=== PATIENT | female | born 1990 | race Two or more races ===

== ENCOUNTER 2018-12-30 15:58 | Emergency (ER) | payer SELFPAY ==
[~2018-12-30] VITALS: Ht 157.5 cm; Wt 97.5 kg
[~2018-12-30 15:58] MED LIST: NITR100C62 PO; ONDA4TAB10 PO; RANI-376 PO
[2018-12-30 17:55] VITALS: BP 128/77
[2018-12-30] MEDS ORDERED: TERB30CR TP (18:45)
--- NOTE | 2018-12-30 18:45 | PHYS DOC ---
Past Medical History Past Medical History: No Pertinent History (MICHELE POLANCO APRN) Past Surgical History: No Surgical History (MICHELE POLANCO APRN) Alcohol Use: None Drug Use: None (MICHELE POLANCO APRN) Adult General Chief Complaint Chief Complaint: SKIN RASH/ABSCESS HPI HPI Patient is a 28 year old female who presents to the emergency department with complaints of the dry, itchy, rash on both of her hands for the last week. Patient reports that the rash is painful, she currently he rates the pain and 8/10 and describes it as burning. (MICHELE POLANCO APRN) Review of Systems Review of Systems Constitutional: Denies fever or chills [] HENT: Denies nasal congestion or sore throat [] Respiratory: Denies cough or shortness of breath [] Cardiovascular: No additional information not addressed in HPI [] GI: Denies abdominal pain, nausea, vomiting, or diarrhea Musculoskeletal: Denies joint pain [] Integument: See HPI Neurologic: Denies headache, focal weakness or sensory changes [] Complete systems were reviewed and found to be within normal limits, except as documented in this note. (MICHELE POLANCO APRN) Allergies Allergies Allergies Coded Allergies Type Severity Reaction Last Updated Verified No Known Drug Allergies 04/19/14 No (REFUGIO BOYD MD) Physical Exam Physical Exam Constitutional: Well developed, well nourished, no acute distress, non-toxic appearance. [] HENT: Normocephalic, atraumatic, bilateral external ears normal, oropharynx moist, no oral exudates, nose normal. [] Eyes: PERRLA, no discharge. [] Neck: Normal range of motion, no stridor. [] Cardiovascular:Heart rate regular rhythm Lungs & Thorax: respirations even and unlabored, no retractions, no distress Skin: Warm, dry, no erythema; dry, scaly, cracked skin present on bilateral hands consistent with tinea mannum Extremities: No cyanosis, ROM intact, no edema, no deformities. Neurologic: Alert and oriented X 3, normal motor function, normal sensory function, no focal deficits noted. [] Psychologic: Affect normal, judgement normal, mood normal. [] (MICHELE POLANCO APRN) EKG EKG [] (MICHELE POLANCO APRN) Radiology/Procedures Radiology/Procedures [] (MICHELE POLANCO APRN) Course & Med Decision Making Course & Med Decision Making Pertinent Labs and Imaging studies reviewed. (See chart for details) [] (MICHELE POLANCO APRN) Course & Med Decision Making Staff Physician Addendum: I was working in the ER during the course of this patient's visit. I was available for consultation as needed, but I was not directly involved in the care of this patient. (REFUGIO BOYD MD) Dragon Disclaimer Dragon Disclaimer This electronic medical record was generated, in whole or in part, using a voice recognition dictation system. (MICHELE POLANCO APRN) Departure Departure Impression: Primary Impression: Tinea manuum Disposition: 01 HOME, SELF-CARE Condition: STABLE Referrals: NO PCP (PCP) Patient Instructions: Skin Infections, Terbinafine skin cream, gel, or topical solution Additional Instructions: Fill the prescription and use as directed. Avoid scratching areas. Follow up with Primary care doctor for further treatment and evaluation, return to the ER if symptoms worsen. Scripts Terbinafine HCl (Lamisil At) 30 Gm Cream..g. 30 GM TP BID for 14 Days, #1 TUBE 0 Refills Prov: MICHELE POLANCO APRN 12/30/18 MICHELE POLANCO APRN Dec 30, 2018 18:45 REFUGIO BOYD MD March 11, 2019 06:53
== END 2018-12-30 18:54 | disposition home or self-care (01) ==
LOC: ER 15:58
DX: B35.2 Tinea manuum (principal)
CPT/HCPCS: 99282

== ENCOUNTER 2019-09-16 20:17 | Emergency (ER) | payer SELFPAY ==
[~2019-09-16] VITALS: Ht 152.4 cm; Wt 81.6 kg
[~2019-09-16 20:17] MED LIST changes: +TERB30CR TP
[2019-09-16 21:17] VITALS: BP 121/87
[2019-09-16 21:53] LABS: INFLUENZA A PATIENT NEGATIVE (NEGATIVE); INFLUENZA B PATIENT NEGATIVE (NEGATIVE)
[2019-09-16] MEDS ORDERED: METH4TAB2 PO (21:57)
[2019-09-16] MEDS ORDERED: BENZ100C PO (21:57)
[2019-09-16] MEDS ORDERED: AZIT250T6 PO (21:57)
--- NOTE | 2019-09-16 21:57 | PHYS DOC ---
Past Medical History Past Medical History: No Pertinent History (MARGOT YUSUF APRN) Past Surgical History: No Surgical History (MARGOT YUSUF APRN) Alcohol Use: None Drug Use: None (MARGOT YUSUF APRN) Adult General Chief Complaint Chief Complaint: COUGH HPI HPI Patient is a 29 year old female who presents with today began having a cough and runny nose. Patient denies any pain, fever, chest pain, shortness of air, d iarrhea, nausea, vomiting, abdominal pain. (MARGOT YUSUF APRN) Review of Systems Review of Systems HENT: nasal congestion or denies sore throat [] Respiratory: cough or denies shortness of breath [] All other systems were reviewed and found to be within normal limits, except as documented in this note. (MARGOT YUSUF APRN) Current Medications Current Medications Current Medications Medications (Trade) Dose Ordered Sig/Davey Start Time Stop Time Status Last Admin Dose Admin Albuterol Sulfate (Ventolin Neb Soln) 2.5 mg 1X ONCE 09/16/19 22:00 09/16/19 22:01 DC 09/16/19 21:41 2.5 MG (REFUGIO BOYD MD) Allergies Allergies Allergies Coded Allergies Type Severity Reaction Last Updated Verified No Known Drug Allergies 04/19/14 No (REFUGIO BOYD MD) Physical Exam Physical Exam Constitutional: Well developed, well nourished, no acute distress, non-toxic appearance. [] HENT: Normocephalic, atraumatic, bilateral external ears normal, oropharynx moist, no oral exudates, nose normal. [] Eyes: PERRLA, EOMI, conjunctiva normal, no discharge. [] Neck: Normal range of motion, no tenderness, supple, no stridor. [] Cardiovascular:Heart rate regular rhythm, no murmur [] Lungs & Thorax: Bilateral breath sounds expiratory wheezing to auscultation [] Abdomen: Bowel sounds normal, soft, no tenderness, no masses, no pulsatile masses. [] Skin: Warm, dry, no erythema, no rash. [] Back: No tenderness, no CVA tenderness. [] Extremities: No tenderness, no cyanosis, no clubbing, ROM intact, no edema. [] Neurologic: Alert and oriented X 3, normal motor function, normal sensory function, no focal deficits noted. [] Psychologic: Affect normal, judgement normal, mood normal. [] (MARGOT YUSUF APRN) Current Patient Data Vital Signs Vital Signs Date Time Temp Pulse Resp B/P (MAP) Pulse Ox O2 Delivery O2 Flow Rate FiO2 09/16/19 21:41 98 Room Air 09/16/19 21:17 98.3 72 16 121/87 (98) 98.3 (REFUGIO BOYD MD) Lab Values Laboratory Tests Test 09/16/19 21:30 09/16/19 22:25 Influenza Type A Antigen Negative (NEGATIVE) Influenza Type B Antigen Negative (NEGATIVE) POC Urine HCG, Qualitative Hcg negative (Negative) (REFUGIO BOYD MD) Lab Values Laboratory Tests Test 09/16/19 21:30 Influenza Type A Antigen Negative (NEGATIVE) Influenza Type B Antigen Negative (NEGATIVE) (MARGOT YUSUF APRN) EKG EKG [] (MARGOT YUSUF APRN) Radiology/Procedures Radiology/Procedures [] (MARGOT YUSUF APRN) Course & Med Decision Making Course & Med Decision Making Alert and oriented. Skin pink warm and dry. Patient has expiratory wheezing throughout all lung lobes. Ambulatory with a steady gait. Vital signs within normal limits. Amado without exudates or swelling. Tympanic is pearly white. Speaks in full clear sentences. Patient is given breathing treatment in the emergency room. Influenza negative. Dr. Boyd read the chest x-ray as no obvious acute findings. [] (MARGOT YUSUF APRN) Dragon Disclaimer Dragon Disclaimer This electronic medical record was generated, in whole or in part, using a voice recognition dictation system. (MARGOT YUSUF APRN) Departure Departure Impression: Primary Impression: Cough in adult Additional Impression: Nasal congestion Disposition: 01 HOME, SELF-CARE Condition: STABLE Referrals: NO PCP (PCP) Patient Instructions: Bronchitis, Cough, Adult Additional Instructions: Follow-up with primary care provider. Keep continue taking Tylenol or ibuprofen. Take medication as prescribed. Scripts Benzonatate (TESSALON PERLE) 100 Mg Capsule 1 CAP PO TID, #30 CAP Prov: MARGOT YUSUF APRN 09/16/19 Methylprednisolone (MEDROL) 4 Mg Tab.ds.pk 1 PKG PO UD, #1 PKG Prov: MARGOT YUSUF APRN 09/16/19 Azithromycin (AZITHROMYCIN TABLET) 250 Mg Tablet 1 PKG PO UD for 5 Days, #6 TAB 0 Refills 2 the first day followed by 1 for days 2-5 Prov: MARGOT YUSUF APRN 09/16/19 Problem Qualifiers MARGOT YUSUF APRN Sep 16, 2019 21:57 REFUGIO BOYD MD Sep 17, 2019 04:23
[2019-09-16] MEDS ORDERED: ALBUTEROL SULFATE 2.5 MG/3 ML NEBU. NEB ONE (22:00)
--- NOTE | 2019-09-17 07:10 | RAD ---
Indication: Cough and shortness of breath. TECHNIQUE: 2 views of the chest COMPARISON: None FINDINGS: Heart is normal in size. Lungs are clear. No pneumothorax or pleural effusion. Visualized bony thorax within normal limits. IMPRESSION: No acute pulmonary process. Electronically signed by: Tani Dumas DO (09/17/2019 7:07 AM) [facility]
== END 2019-09-16 22:25 | disposition home or self-care (01) ==
LOC: ER 20:17
DX: R05 Cough (principal); R09.81 Nasal congestion
CPT/HCPCS: 71046; 81025; 87804; 94640; 99285; J7613

== ENCOUNTER 2019-11-13 22:28 | Emergency (ER) | payer SELFPAY ==
[~2019-11-13] VITALS: Ht 175.3 cm; Wt 83.4 kg
[~2019-11-13 22:28] MED LIST changes: +AZIT250T6 PO; +BENZ100C PO; +METH4TAB2 PO
--- NOTE | 2019-11-13 23:21 | PHYS DOC ---
Past Medical History Past Medical History: No Pertinent History Past Surgical History: No Surgical History Alcohol Use: None Drug Use: None Adult General Chief Complaint Chief Complaint: ABDOMINAL PAIN HPI HPI 29-year-old female presents to the emergency department with complaints of epigastric abdominal pain, nausea. Patient states symptoms have been ongoing for a few days without relief. Patient's last menstrual period was in August 2019, she does have urine positive test here in the emergency department. She denies any lower abdominal discomfort or cramping, she denies any vaginal discharge or vaginal bleeding. Nothing makes her symptoms better. Nothing makes her symptoms worse. Patient denies headache or visual change on exam. Review of Systems Review of Systems Constitutional: Denies fever or chills [] Respiratory: Denies cough or shortness of breath [] Cardiovascular: No additional information not addressed in HPI [] GI: epigastric pain, nausea, no vomiting, bloody stools or diarrhea [] : Denies dysuria or hematuria [] Musculoskeletal: Denies back pain or joint pain [] Integument: rash appreciated to wrist/hand Neurologic: Denies headache, focal weakness or sensory changes [] All other systems were reviewed and found to be within normal limits, except as documented in this note. Current Medications Current Medications Current Medications Medications (Trade) Dose Ordered Sig/Davey Start Time Stop Time Status Last Admin Dose Admin Multi-Ingredient Mouthwash/Gargle (Gi Cocktail) 20 ml 1X ONCE 11/13/19 23:30 11/13/19 23:31 DC 11/13/19 23:32 20 ML Allergies Allergies Allergies Coded Allergies Type Severity Reaction Last Updated Verified No Known Drug Allergies 04/19/14 No Physical Exam Physical Exam Constitutional: Well developed, well nourished, no acute distress, non-toxic appearance. [] HENT: Normocephalic, atraumatic, bilateral external ears normal, oropharynx moist, no oral exudates, nose normal. [] Eyes: PERRLA, EOMI, conjunctiva normal, no discharge. [] Cardiovascular:Heart rate regular rhythm, no murmur [] Lungs & Thorax: Bilateral breath sounds clear to auscultation [] Abdomen: Bowel sounds normal, soft, no tenderness, no masses, no pulsatile masses. [] Skin: Warm, dry, no erythema, no rash. [] Back: No tenderness, no CVA tenderness. [] Extremities: No tenderness, no edema. [] Neurologic: Alert and oriented X 3, no focal deficits noted. [] Psychologic: Affect normal, judgement normal, mood normal. [] Current Patient Data Vital Signs Vital Signs Date Time Temp Pulse Resp B/P (MAP) Pulse Ox O2 Delivery O2 Flow Rate FiO2 11/13/19 23:10 98.4 84 22 124/76 (92) 99 Room Air 98.4 Lab Values Laboratory Tests Test 11/13/19 23:04 POC Urine HCG, Qualitative Hcg positive (Negative) EKG EKG [] Radiology/Procedures Radiology/Procedures [] Course & Med Decision Making Course & Med Decision Making Pertinent Labs and Imaging studies reviewed. (See chart for details) []29-year-old female presents to the emergency department with complaints of epigastric abdominal pain, nausea. Patient states symptoms have been ongoing for a few days without relief. Patient's last menstrual period was in August 2019, she does have urine positive test here in the emergency department. She denies any lower abdominal discomfort or cramping, she denies any vaginal discharge or vaginal bleeding. Nothing makes her symptoms better. Nothing makes her symptoms worse. Patient denies headache or visual change on exam. + test GI cocktail with improved epigastric discomfort Recommend maalox over the counter Hydrocortisone cream for the eczema rash Discussed dc home Dragon Disclaimer Dragon Disclaimer This electronic medical record was generated, in whole or in part, using a voice recognition dictation system. Departure Departure Impression: Primary Impression: GERD (gastroesophageal reflux disease) Additional Impression: Eczema Disposition: 01 HOME, SELF-CARE Condition: IMPROVED Referrals: NO PCP (PCP) Patient Instructions: Diet for Gastroesophageal Reflux Disease, Adult, [id number], Eczema Additional Instructions: Recommend follow up with PCP 3 - 5 days Return to the ER with worsening symptoms, intractable pain, fever, altered mental status Tylenol/Motrin as needed for pain Ok to use maalox over the counter as needed Prescription provided for steroid cream for hands Scripts Hydrocortisone Valerate (HYDROCORTISONE VALERATE) 15 Gm Cream..g. 1 TEO TP BID for 7 Days, #15 GM Prov: CORY ELIAS MD 11/13/19 Mag Hydrox/Aluminum Hyd/Simeth (Maalox Advanced Suspension) 355 Ml Oral.susp 355 ML PO Q6HRS PRN for GI SYMPTOMS, #1 BOTTLE Prov: CORY ELIAS MD 11/13/19 Problem Qualifiers Primary Impression: GERD (gastroesophageal reflux disease) Esophagitis presence: esophagitis presence not specified Qualified Codes: K21.9 - Gastro-esophageal reflux disease without esophagitis Additional Impression: Eczema Eczema type: unspecified Qualified Codes: L30.9 - Dermatitis, unspecified CORY ELIAS MD Nov 13, 2019 23:21
[2019-11-13] MEDS ORDERED: LIDO:MAALOX 1:1 20 ML SINGLE DOSE. SWSW ONE (23:30)
[2019-11-13] MEDS ORDERED: MAG355OR11 PO (23:56)
[2019-11-13] MEDS ORDERED: HYDR15CR20 TP (23:56)
[2019-11-14 00:05] VITALS: BP 138/60
== END 2019-11-14 00:22 | disposition home or self-care (01) ==
LOC: ER 22:28
DX: O26.891 Other specified pregnancy related conditions, first trimester (principal); K21.9 Gastro-esophageal reflux disease without esophagitis; L30.9 Dermatitis, unspecified; R10.13 Epigastric pain; R11.0 Nausea
CPT/HCPCS: 81025; 99282

== ENCOUNTER 2022-03-15 09:45 | Emergency (ER) | payer SELFPAY ==
[~2022-03-15] VITALS: Ht 162.6 cm; Wt 79.4 kg
[~2022-03-15 09:45] MED LIST changes: +CEPH500C PO; +HYDR15CR20 TP; +MAG355OR11 PO; +ONDA-84 PO
--- NOTE | 2022-03-15 10:27 | PHYS DOC ---
Past Medical History Past Medical History: No Pertinent History Past Surgical History: No Surgical History Smoking Status: Never Smoker Alcohol Use: None Drug Use: None General Adult EDM: Chief Complaint: ABDOMINAL PAIN HPI: HPI: Patient is a 32-year-old female who presents today with abdominal pain. Patient is Eritrean speaking, we did call interpretive services we were unable to get an deaf interpreter at this time, her does speak a limited amount of Bulgarian and I was able to get some history for the HPI and review of systems through him. Patient states that her pain started approximately 10 PM last night she has had some nausea and vomiting with this, she denies any diarrhea. Patient also denies fever and chills. Patient states that she has had frequency in urination but no painful urination. Patient is a 2 para 2 Review of Systems: Review of Systems: Constitutional: Denies fever or chills. [] Eyes: Denies change in visual acuity. [] HENT: Denies nasal congestion or sore throat. [] Respiratory: Denies cough or shortness of breath. [] Cardiovascular: Denies chest pain or edema. [] GI: abdominal pain, nausea, vomiting, denies bloody stools or diarrhea. [] : Denies dysuria. [] Musculoskeletal: Denies back pain or joint pain. [] Integument: Denies rash. [] Neurologic: Denies headache, focal weakness or sensory changes. [] Endocrine: Denies polyuria or polydipsia. [] Lymphatic: Denies swollen glands. [] Psychiatric: Denies depression or anxiety. [] Heart Score: C/O Chest Pain: No Risk Factors: Risk Factors: DM, Current or recent (<one month) smoker, HTN, HLP, family history of CAD, obesity. Risk Scores: Score 0 - 3: 2.5% MACE over next 6 weeks - Discharge Home Score 4 - 6: 20.3% MACE over next 6 weeks - Admit for Clinical Observation Score 7 - 10: 72.7% MACE over next 6 weeks - Early Invasive Strategies Allergies: Allergies: Allergies Coded Allergies Type Severity Reaction Last Updated Verified No Known Drug Allergies 04/19/14 No Physical Exam: PE: Constitutional: Well developed, well nourished, no acute distress, non-toxic appearance. [] HENT: Normocephalic, atraumatic, bilateral external ears normal, oropharynx moist, no oral exudates, nose normal. [] Eyes: PERRLA, EOMI, conjunctiva normal, no discharge. [] Neck: Normal range of motion, no tenderness, supple, no stridor. [] Cardiovascular:Heart rate regular rhythm, no murmur [] Lungs & Thorax: Bilateral breath sounds clear to auscultation [] Abdomen: Abdomen is soft and nontender, bowel sounds are normal, no pulsatile masses noted Skin: Warm, dry, no erythema, no rash. [] Back: No tenderness, no CVA tenderness. [] Extremities: No tenderness, no cyanosis, no clubbing, ROM intact, no edema. [] Neurologic: Alert and oriented X 3, normal motor function, normal sensory function, no focal deficits noted. [] Psychologic: Affect normal, judgement normal, mood normal. [] Current Patient Data: Labs: Laboratory Tests Test 03/15/22 09:50 03/15/22 09:57 03/15/22 10:27 Urine Collection Type Void Urine Color (Auto) Yellow Urine Turbidity Hazy Urine pH (Auto) 5.5 Urine Specific Mullins 1.030 Urine Protein (Auto) 30 mg/dL Urine Glucose (Auto)(UA) Negative mg/dL Urine Ketones (Auto) Negative mg/dL Urine Blood (Auto) Negative Urine Nitrite Negative Urine Bilirubin (Auto) Negative Urine Urobilinogen (Auto) Normal mg/dL Urine Leukocyte Esterase (Auto) Large Urine RBC 0 /HPF Urine WBC 11-20 /HPF Urine Squamous Epithelial Cells Mod /LPF Urine Amorphous Sediment Present /HPF Urine Bacteria Few /HPF Urine Mucus Marked /LPF Bedside Urine HCG, Qualitative Hcg positive White Blood Count 7.0 x10^3/uL Red Blood Count 4.27 x10^6/uL Hemoglobin 11.3 g/dL Hematocrit 34.0 % Mean Corpuscular Volume 80 fL Mean Corpuscular Hemoglobin 26 pg Mean Corpuscular Hemoglobin Concent 33 g/dL Red Cell Distribution Width 15.6 % Platelet Count 235 x10^3/uL Neutrophils (%) (Auto) 77 % Lymphocytes (%) (Auto) 14 % Monocytes (%) (Auto) 6 % Eosinophils (%) (Auto) 4 % Basophils (%) (Auto) 0 % Neutrophils # (Auto) 5.3 x10^3/uL Lymphocytes # (Auto) 1.0 x10^3/uL Monocytes # (Auto) 0.4 x10^3/uL Eosinophils # (Auto) 0.3 x10^3/uL Basophils # (Auto) 0.0 x10^3/uL Maternal Serum HCG Beta Subunit 53603 mIU/mL Sodium Level 135 mmol/L Potassium Level 3.2 mmol/L Chloride Level 105 mmol/L Carbon Dioxide Level 22 mmol/L Anion Gap 8 Blood Urea Nitrogen 7 mg/dL Creatinine 0.7 mg/dL Estimated GFR (Cockcroft-Gault) 97.6 BUN/Creatinine Ratio 10 Glucose Level 134 mg/dL Calcium Level 7.9 mg/dL Total Bilirubin 0.2 mg/dL Aspartate Amino Transf (AST/SGOT) 15 U/L Alanine Aminotransferase (ALT/SGPT) 10 U/L Alkaline Phosphatase 76 U/L Total Protein 7.4 g/dL Albumin 2.3 g/dL Albumin/Globulin Ratio 0.5 Laboratory Tests Test 03/15/22 09:57 POC Urine HCG, Qualitative Hcg positive (Negative) Vital Signs: Vital Signs Date Time Temp Pulse Resp B/P (MAP) Pulse Ox O2 Delivery O2 Flow Rate FiO2 03/15/22 11:06 63 16 100/57 (71) 100 Room Air 03/15/22 10:36 65 16 121/73 (89) 98 Room Air 03/15/22 09:50 98.2 72 16 137/80 (99) 97 Room Air 98.2 Vital Signs Date Time Temp Pulse Resp B/P (MAP) Pulse Ox O2 Delivery O2 Flow Rate FiO2 03/15/22 09:50 98.2 72 16 137/80 (99) 97 Room Air 98.2 EKG: EKG: [] Radiology/Procedures: Radiology/Procedures: REASON: abdominal pain in PROCEDURE: PREG MORE THAN OR EQ TO 14 WKS US OB >14 WEEKS History: Reason: abdominal pain in / Spl. Instructions: / History: Comparison: None. Technique: Multiple grayscale images, color Doppler, and M-mode images of the uterus are obtained. Findings: There is a single intrauterine gestation in cephalic presentation. The placenta is anterior in location without evidence of placenta previa. The amount of amniotic fluid appears appropriate. Amniotic fluid index is 11 cm. Cervical length is 5.2 cm. Biometrical data: BPD = 3.1 cm for 15 weeks 5 days. HC = 11.3 cm for 15 weeks 4 days. AC = 9.4 cm for 15 weeks 4 days. FL = 1.9 cm for 15 weeks 5 days. HC/AC ratio = 1.2. Overall, the estimated sonographic gestational age is 15 weeks 5 days for an estimated date of delivery of September 01, 2022. Cardiac activity was identified. heart rate 153 bpm. There is movement. Fluid noted within the bladder. The stomach was visualized. Additional structures not well evaluated due to gestational age and ma ternal patient's body habitus. Bilateral maternal ovaries not identified due to positioning and overlying structures. No adnexal mass or fluid collection. Impression: 1. Single intrauterine gestation with estimated gestational age 15 weeks 5 days. 2. Recommend routine anatomic screening at 18-22 weeks. Electronically signed by: Haroldo Jaramillo DO (03/15/2022 11:21 AM) [id number] [] Course & Med Decision Making: Course & Med Decision Making Pertinent Labs and Imaging studies reviewed. (See chart for details) I was informed by the nurse that the patient's test was positive here in the emergency department, I did pass along that information to the patient and family. [address] Dunbar from the OB service and conferred with her about this patient's case, she recommended that the patient be discharged home with treatment for her urinary tract infection and she should follow-up in the office this week for further evaluation and management of her . It was discussed that this patient previously has had 2 home births and she has not currently have WASH WORKER care. 1230 I spoke with patient and family member did inform him that she is approximately 15 weeks along in her , abdominal pain that she is experiencing could be due to round ligament stretching as was suggested by Dr. Dunbar or from the urinary tract infection that the patient does show evidence of while here in the emergency department. Patient will be given a prescription for Macrobid 100 mg take 1 tablet twice daily for 7 full days and has been given instructions to follow-up with Dr. Dunbar in her office this week for further evaluation and management of her . Patient and family member verbalized understanding of this and are agreeable with the plan of care. Yifan Disclaimer: Yifan Disclaimer: This electronic medical record was generated, in whole or in part, using a voice recognition dictation system. Departure Departure Impression: Primary Impression: Abdominal pain during Qualified Codes: O26.892 - Other specified related conditions, second trimester; R10.9 - Unspecified abdominal pain Additional Impression: Urinary tract infection Qualified Codes: N30.00 - Acute cystitis without hematuria Disposition: HOME / SELF CARE / HOMELESS Condition: STABLE Referrals: UNKNOWN PCP NAME (PCP) DENNIS DUNBAR MD Patient Instructions: Abdominal Pain During , - Urinary Tract Infection Additional Instructions: Macrobid take 1 tablet twice daily for 7 days for urinary tract infection Take an [id number] vitamin to help support your Increase by mouth fluids avoiding caffeine Follow-up with Dr. Dunbar who is the WASH WORKER on-call for further evaluation and management of your Return to the emergency department should you have increased abdominal pain, v aginal bleeding, or development of a fever. [facility] [address] [place] [address] [facility] [address] [place] [address] [facility] [address] [facility] [place] [address] [facility] [address] [place] [address] [facility] [address] [place] [address] [facility] [address] [place] [address] [facility] [address] [place] [address] [facility] [address] [place] [address] [facility] [address] [place] [address] [facility] [address] [place] [address] Scripts Nitrofurantoin Monohyd/M-Cryst (MACROBID 100 MG CAPSULE) 100 Mg Capsule 1 CAP PO BID for 7 Days, #14 CAP 0 Refills Prov: CHARLINE HASSAN FISH PROCESSING SUPERVISOR 03/15/22 CHARLINE HASSAN FISH PROCESSING SUPERVISOR March 15, 2022 10:27
[2022-03-15 10:50] LABS: CALCIUM 7.9 mg/dL (8.5-10.1); CREATININE 0.7 mg/dL (0.6-1.0); GFR 97.6; POTASSIUM 3.2 mmol/L (3.5-5.1)
[2022-03-15 10:56] LABS: ALBUMIN 2.3 g/dL (3.4-5.0); ALBUMIN/GLOBULIN RATIO 0.5 (1.0-1.7); TOTAL BILIRUBIN 0.2 mg/dL (0.2-1.0); TOTAL PROTEIN 7.4 g/dL (6.4-8.2)
[2022-03-15 11:06] VITALS: BP 100/57
[2022-03-15 11:11] LABS: BASO % 0 % (0-3); EOS # 0.3 x10^3/uL (0.0-0.7); EOS % 4 % (0-3); HEMOGLOBIN 11.3 g/dL (12.0-15.5); LYMPH % 14 % (24-48); MEAN CORPUSCULAR HEMOGLOBIN 26 pg (25-35); MEAN CORPUSCULAR HGB CONC 33 g/dL (31-37); MEAN CORPUSCULAR VOLUME 80 fL (79-100); MONO # 0.4 x10^3/uL (0.0-1.1); MONO % 6 % (0-9); NEUT # 5.3 x10^3/uL (1.8-7.7); NEUT % 77 % (31-73); PLATELET COUNT 235 x10^3/uL (140-400); RED BLOOD COUNT 4.27 x10^6/uL (3.50-5.40); RED CELL DISTRIBUTION WIDTH 15.6 % (11.5-14.5)
--- NOTE | 2022-03-15 11:23 | RAD ---
US OB >14 WEEKS History: Reason: abdominal pain in / Spl. Instructions: / History: Comparison: None. Technique: Multiple grayscale images, color Doppler, and M-mode images of the uterus are obtained. Findings: There is a single intrauterine gestation in cephalic presentation. The placenta is anterior in locati on without evidence of placenta previa. The amount of amniotic fluid appears appropriate. Amniotic f luid index is 11 cm. Cervical length is 5.2 cm. Biometrical data: BPD = 3.1 cm for 15 weeks 5 days. HC = 11.3 cm for 15 weeks 4 days. AC = 9.4 cm for 15 weeks 4 days. FL = 1.9 cm for 15 weeks 5 days. HC/AC ratio = 1.2. Overall, the estimated sonographic gestational age is 15 weeks 5 days for an estimated date of delive ry of September 01, 2022. Cardiac activity was identified. heart rate 153 bpm. There is movement. Fluid noted withi n the bladder. The stomach was visualized. Additional structures not well evaluated due t o gestational age and maternal patient's body habitus. Bilateral maternal ovaries not identified due to positioning and overlying structures. No adnexal mas s or fluid collection. Impression: 1. Single intrauterine gestation with estimated gestational age 15 weeks 5 days. 2. Recommend routine anatomic screening at 18-22 weeks. Electronically signed by: Haroldo Jaramillo DO (03/15/2022 11:21 AM) [id number]
[2022-03-15 11:47] LABS: AMORPHOUS SEDIMENT,UR PRESENT /HPF; BACTERIA,URINE FEW /HPF (0-FEW); RBC,URINE 0 /HPF (0-2)
[2022-03-15] MEDS ORDERED: NITR100C62 PO (12:56)
== END 2022-03-15 13:06 | disposition home or self-care (01) ==
LOC: ER 09:45
DX: O23.12 Infections of bladder in pregnancy, second trimester (principal); N30.00 Acute cystitis without hematuria; Z3A.15 15 weeks gestation of pregnancy
CPT/HCPCS: 36415; 76805; 80053; 81001; 81025; 84702; 85025; 86850; 86900; 86901; 87086; 99284